=== PATIENT | male | born 1980 | race Caucasian/White ===

== ENCOUNTER 2022-11-24 16:59 | Outpatient (REF) | payer OTHER, SELFPAY ==
[2022-11-24 18:07] LABS: Abs Immature Grans 0.01 10^3/uL (0.0-0.06); Absolute Basophil Count 0.04 10^3/uL (0.0-0.2); Absolute Eosinophil Count 0.08 10^3/uL (0.0-0.7); Absolute Lymphocyte Count 2.26 10^3/uL (1.2-3.4); Absolute Neutrophil Count 2.87 10^3/uL (1.2-6.7); Basophils % 0.7; Eosinophils % 1.4; HGB 14.6 g/dL (13.5-17.5); Immature Grans % 0.2; Lymphocytes % 39.2; MCH 29.5 pg (27.0-33.0); MCV 87 fL (80-95); MPV 10.3 fL (8.0-11.0); Monocytes % 8.7; Neutrophils % 49.8; Platelet Count 264 10^3/uL (130-400); RBC 4.95 10^6/uL (4.36-5.78); RDW 11.9 % (11.8-14.1); RDW-SD 38.4 fL; WBC 5.76 10^3/uL (4.4-10.8)
[2022-11-24 18:35] LABS: ALT 54 U/L (16-63); AST 36 U/L (15-37); Albumin 4.7 g/dL (3.4-5.0); Alkaline Phosphatase 132 U/L (46-116); Anion Gap 9.1 mmol/L (3-11); BUN 23 mg/dL (7-18); Bilirubin, Total 0.7 mg/dL (0.2-1.0); CO2 26.9 mmol/L (21.0-32.0); CREATININE 1.4 mg/dL (0.70-1.30); Calcium 9.5 mg/dL (8.5-10.1); Chloride 104 mmol/L (98-107); Estimated GFR 63.96 (mL/min/1.73m2); Glucose 105 mg/dL (74-106); Potassium 4.5 mmol/L (3.5-5.1); Sodium 140 mmol/L (136-145); TSH (W/Ref FT4) 1.35 uIU/mL (0.36-3.74); Total Protein 7.5 g/dL (6.4-8.2)
[2022-11-24 18:48] LABS: Hemoglobin A1C 5.5 % (<5.7)
[2022-11-24 19:05] LABS: Vitamin D 25 Total 18.3 ng/mL (30-100)
[2022-11-25 19:25] LABS: PSA, Screening 0.9 ng/mL (<=2.5)
[2022-11-26 14:25] LABS: ANA Interpretation Negative (Negative)
[2022-12-01 14:50] LABS: Testosterone, Free 14.2 ng/dL (4.46-17.1); Testosterone, Total 562 ng/dL (240-950)
== END 2022-11-24 17:00 | disposition home or self-care (01) ==
LOC: NCHCN 16:59
PROVIDERS: Visit Provider Nurse Practitioner Family
DX: M25.50 Pain in unspecified joint (principal); A69.20 Lyme disease, unspecified; N52.9 Male erectile dysfunction, unspecified; R53.83 Other fatigue; Z12.5 Encounter for screening for malignant neoplasm of prostate; E55.9 Vitamin D deficiency, unspecified; R79.89 Other specified abnormal findings of blood chemistry; Z01.84 Encounter for antibody response examination
CPT/HCPCS: 80053; 82306; 84153; 84402; 84403; 83036; 84443; 85025; 86038

== ENCOUNTER 2025-03-28 11:53 | Emergency (ER) | payer OTHER, SELFPAY ==
[2025-03-28 11:59] VITALS: BP 163/92; PULSE 59; RESP 20; TEMP 36.3; O2SAT 95
[2025-03-28] MEDS: predniSONE 20 MG TAB 40 MG PO (12:22)
[2025-03-28] MEDS: Cyclobenzaprine 10 MG TAB PO (12:23)
[2025-03-28] MEDS: oxyCODONE 5 mg/Acetaminophen 325 mg TAB 1 TAB PO (12:30)
--- NOTE | 2025-03-28 13:00 | DI.US_ITS ---
Exam(s) US UPPER EXTREMITY VENOUS RT EXAM: US UPPER EXTREMITY VENOUS RT CLINICAL HISTORY: arm pain and swelling TECHNIQUE: GRAYSCALE, COLOR, DOPPLER IMAGING OF THE VENOUS SYSTEM OF THE UPPER EXTREMITY-RIGHT COMPARISON: No exams were available for comparison FINDINGS: Basilic vein: Patent. Normal color-flow and normal compression and augmentation properties. Brachial vein(s):Patent. Normal color flow. Normal compression and augmentation properties. Cephalic vein:Patent. Normal color flow. Normal compression and augmentation properties. Axillary vein: Patent. Normal color flow. Normal compression and augmentation properties. Visualized subclavian vein: Patent. No obvious intraluminal thrombus. IMPRESSION: 1. No evidence of venous thrombosis in the right upper extremity. 2. No other focal ultrasound findings evident DATA REPOSITORY:
[2025-03-28 13:07] VITALS: BP 201/96; PULSE 61; RESP 16; O2SAT 97
--- NOTE | 2025-03-28 14:00 | DI.RAD_ITS ---
Exam(s) XR SHOULDER RT COMPLETE 2+V EXAM: XR SHOULDER RT COMPLETE 2+V CLINICAL HISTORY: pain and swelling right shoulder, atraumatic. TECHNIQUE: 2D digital imaging was performed. COMPARISON: No exams were available for comparison FINDINGS: Five views No evidence of fracture or dislocation or abnormal soft tissue calcifications. Subacromial space adelaida ears unremarkable. Glenohumeral and AC joints appear unremarkable. Clavicle unremarkable. Adjacent ribs and scapula unremarkable. Coracoid process unremarkable. IMPRESSION: No significant osseous findings in the right shoulder. DATA REPOSITORY: RADIATION DOSE DELIVERED:
[2025-03-28 14:36] VITALS: BP 171/104; PULSE 50; RESP 16; O2SAT 98
--- NOTE | 2025-03-28 18:01 | NUR.NOTE ---
Patient called stating that there was not a prescription for steroid at the pharmacy. It was not sent by the provider, I spoke with her and she will do it tomorrow when she comes in to work. Message for patient left that it will be done tomorrow. Nursing Note:
--- NOTE | 2025-03-29 10:40 | NUR.NOTE ---
Nursing Note:Patient called and immediately began being belligerent, reporting this is the 4th time he has had to call the emergency department in regard to a oral steroid he was told he would have at the pharmacy. Making verbal threats if he has to call again it will be very unpleasant for all of us. I told the patient this is the first time him and I have interacted & I will do my best to help him, he remarked I dont care if this is the first time we have talked, I need you to not be incompetent & send over my prescription. Charge nurse aware and spoke with provider in regard to needing prescription sent. Zaynab
--- NOTE | 2025-03-29 12:45 | ED.GENADUL_ITS ---
Discharge Plan Disposition Patient Disposition: Home Condition: Stable Discharge Details Clinical Impression: Acute shoulder pain Primary Care Provider: Unknown,Unknown ED Provider: Felisa Quintana Home Meds and New Rx's Prescriptions: New oxycodone 5 mg tablet 5 mg PO QHS PRNQty: 4 0RF Continued ibuprofen [Advil] 200 mg tablet 800 mg PO Q8H No Action prednisone 20 mg tablet 40 mg PO DAILY Qty: 10 0RF Discharge Instructions Instructions: Shoulder Pain (DC) Additional Instructions: continue to range shoulder so it does not become stiff voltaren gel take prednisone as prescribed refrain from heavy lifting or repetitive motion tylenol as needed for pain you may take the oxycodone in the evening if you have pain uncontrolled with Tylenol and prednisone, this is addictive and you should not operate a vehicle for 8 hours after taking this medication Please be reevaluated should you have new or worsening complaints Referrals: Jian Chan MD [ [facility] STAFF PHYSICIAN] - Discharge Data Discharge Date/Time-TO BE ENTERED AT DEPARTURE: 03/28/25 14:40 HPI General Date/Time Provider Initiated Documentation: 03/28/25 12:07 . HPI Narrative: The patient is a 44-year-old male with right shoulder pain for several days. 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 Pain worsens with arm movement. No chest pain, SOB, fever, chills, radiation, neck discomfort, numbness, or tingling. Related Data Home Medications ?Medication ?Instructions ?Recorded ?Confirmed ibuprofen 200 mg tablet (Advil) 800 mg PO Q8H 03/28/25 03/28/25 oxycodone 5 mg tablet 5 mg PO QHS PRN #4 tabs 03/28/25 prednisone 20 mg tablet 40 mg (2 x 20 mg) PO DAILY #10 tabs 03/29/25 Previous Rx's ?Medication ?Instructions ?Recorded oxycodone 5 mg tablet 5 mg PO QHS PRN #4 tabs 03/28/25 prednisone 20 mg tablet 40 mg (2 x 20 mg) PO DAILY #10 tabs 03/29/25 Allergies Allergy/AdvReac Type Severity Reaction Status Date / Time No Known Allergies Allergy Unverified 03/28/25 12:04 General Stated Complaint: Orthopedic CARLOS: 3 Exam Narrative Exam Narrative: Vital signs: BP elevated. HEENT: Within normal limits. Respiratory: Within normal limits. Cardiovascular: Distal pulses intact in upper extremities. Back, Musculoskeletal: Tenderness over long head of bicep tendon in right shoulder, especially with abduction and external rotation. No weakness or redness. Skin: Warm and dry, no rash. Neurological: Normal. Course Vital Signs Vital signs: Vital Signs Temperature 36.3 C L 03/28/25 11:59 Pulse 59 L 03/28/25 11:59 Respiratory Rate 20 03/28/25 11:59 Blood Pressure 163/92 H 03/28/25 11:59 Pulse Oximetry 95 03/28/25 11:59 Temperature 36.3 C L 03/28/25 11:59 Pulse 50 L 03/28/25 14:36 Respiratory Rate 16 03/28/25 14:36 Respiratory Effort Normal, Non-Labored 03/28/25 13:07 Respiratory Depth Normal 03/28/25 13:07 Respiratory Pattern Normal 03/28/25 13:07 Blood Pressure 171/104 H 03/28/25 14:36 Blood Pressure Mean 131 03/28/25 13:07 Blood Pressure Position Sitting 03/28/25 13:07 Pulse Oximetry 98 03/28/25 14:36 Oxygen Delivery Method Room Air 03/28/25 13:07 Oxygen Flow Rate 0 03/28/25 13:07 Medical Decision Making Imaging: X-ray and ultrasound of right shoulder show no acute abnormality The patient is a 44-year-old male with right shoulder pain for several days. 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 Pain worsens with arm movement. No chest pain, SOB, fever, chills, radiation, neck discomfort, numbness, or tingling. The patient is a 44-year-old male with right shoulder pain for several days. 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 Pain worsens with arm movement. No chest pain, SOB, fever, chills, radiation, neck discomfort, numbness, or tingling. This 44-year-old male general Appearance: Alert and oriented, appears uncomfortable. Vital signs: BP elevated. HEENT: Within normal limits. Respiratory: Within normal limits. Cardiovascular: Distal pulses intact in upper extremities. Back, Musculoskeletal: Tenderness over long head of bicep tendon in right shoulder, especially with abduction and external rotation. No weakness or redness. Skin: Warm and dry, no rash. Neurological: Normal. Imaging: X-ray and ultrasound of right shoulder show no acute abnormality. Imaging: X-ray and ultrasound of right shoulder show no acute abnormality. Initial Assessment: 44-year-old male with right shoulder pain for several days, no known trauma, pain worsens with movement, tenderness over long head of bicep tendon, especially with abduction and external rotation. No weakness, redness, numbness, or tingling. ED Course: - Right shoulder x-ray reviewed, no acute abnormality. - DVT study reviewed, no acute abnormality. - Prescribed prednisone. - Provided several tablets of oxycodone, risks of addiction reviewed. - Encouraged to recheck elevated blood pressure with PCP. - Return precautions reviewed and patient expressed understanding. Final Assessment: Suspect tendinitis or discomfort in right shoulder. Elevated blood pressure likely secondary to discomfort. Treatment includes prednisone and oxycodone. Diagnostic imaging shows no acute abnormality. Clinical Impression: - Right shoulder pain - Elevated blood pressure Disposition: - Discharge - Follow-Up: Recheck blood pressure with PCP. MDM Components Evaluation: - Number of Differential Diagnoses or Management Options: Tendinitis, discomfort - Amount and Complexity of Data Reviewed: Right shoulder x-ray, DVT study - Risk of Complication and Morbidity or Mortality: Risks of addiction from oxycodone reviewed, elevated blood pressure secondary to discomfort initial Assessment: 44-year-old male with right shoulder pain for several days, no known trauma, pain worsens with movement, tenderness over long head of bicep tendon, especially with abduction and external rotation. No weakness, redness, numbness, or tingling. ED Course: - Right shoulder x-ray reviewed, no acute abnormality. - DVT study reviewed, no acute abnormality. - Prescribed prednisone. - Provided several tablets of oxycodone, risks of addiction reviewed. - Encouraged to recheck elevated blood pressure with PCP. - Return precautions reviewed and patient expressed understanding. Final Assessment: Suspect tendinitis or discomfort in right shoulder. Elevated blood pressure likely secondary to discomfort. Treatment includes prednisone and oxycodone. Diagnostic imaging shows no acute abnormality. Clinical Impression: - Right shoulder pain - Elevated blood pressure Disposition: - Discharge - Follow-Up: Recheck blood pressure with PCP. MDM Components Evaluation: - Number of Differential Diagnoses or Management Options: Tendinitis, discomfort - Amount and Complexity of Data Reviewed: Right shoulder x-ray, DVT study - Risk of Complication and Morbidity or Mortality: Risks of addiction from oxycodone reviewed, elevated blood pressure secondary to discomfort initial Assessment: 44-year-old male with right shoulder pain for several days, no known trauma, pain worsens with movement, tenderness over long head of bicep tendon, especially with abduction and external rotation. No weakness, redness, numbness, or tingling. ED Course: - Right shoulder x-ray reviewed, no acute abnormality. - DVT study reviewed, no acute abnormality. - Prescribed prednisone. - Provided several tablets of oxycodone, risks of addiction reviewed. - Encouraged to recheck elevated blood pressure with PCP. - Return precautions reviewed and patient expressed understanding. Final Assessment: Suspect tendinitis or discomfort in right shoulder. Elevated blood pressure likely secondary to discomfort. Treatment includes prednisone and oxycodone. Diagnostic imaging shows no acute abnormality. Clinical Impression: - Right shoulder pain - Elevated blood pressure Disposition: - Discharge - Follow-Up: Recheck blood pressure with PCP. MDM Components Evaluation: - Number of Differential Diagnoses or Management Options: Tendinitis, discomfort - Amount and Complexity of Data Reviewed: Right shoulder x-ray, DVT study - Risk of Complication and Morbidity or Mortality: Risks of addiction from oxycodone reviewed, elevated blood pressure secondary to discomfort Quality:SDOH Health Related Social Needs: No Data to Display PFSH All Active Problems (Updated 03/28/25 @ 14:12 by HANSEL Gary) Acute shoulder pain (Acute) Social History Smoking risk assessment performed?: No PAWSS Have you Been Recently Intoxicated or Drunk Within the Last 30 days?: No Have you Ever Experienced Previous Episodes of Alcohol Withdrawal?: No Have you ever Experienced Withdrawal Seizures?: No Have you ever Experienced Delirium Tremens(DT)s?: No Have you ever undergone Alcohol Rehabilitation Treatment (i.e, inpt ot outpatient treatment programs)?: No Have you ever Experienced Blackouts?: No Have you ever Combined Alcohol with other Downers within the last 90 days?: No Have you ever Combined Alcohol with any other Substance of Abuse during the last 90 days?: No Positive Blood Alcohol level on Presentation? [PCS.BAL]: No Evidence of Increased Autonomic Activity (i.e. HR>120, tremor, sweating, agitation, nausea)?: No Result: 0
== END 2025-03-28 14:40 | disposition home or self-care (01) ==
PROVIDERS: Emergency Provider Physician Assistant
DX: M25.511 Pain in right shoulder (principal)
CPT/HCPCS: 99284; 73030; 93971; J7512

== ENCOUNTER 2025-09-20 10:33 | Outpatient (CLI) | payer OTHER, SELFPAY ==
--- NOTE | 2025-09-20 10:30 | RT.EKG_ITS ---
APPROVED REPORT Exam: Resting ECG Reason for Exam: dizziness Patient Location: O HR:54 bpm ECG Measurements Heart Rate 54 AXIS RI 148 P 41 QRSd 86 QRS 24 QT 444 T 44 QTc 421 Conclusion Sinus rhythm...normal P axis, V-rate 50- 99 Probable left atrial enlargement...P >50mS, <-0.10mV V1 Otherwise normal ECG
== END 2025-09-20 10:34 | disposition home or self-care (01) ==
LOC: DI.CM 10:34
PROVIDERS: Visit Provider Nurse Practitioner Family
DX: R42 Dizziness and giddiness (principal); I51.7 Cardiomegaly
CPT/HCPCS: 93010